=== PATIENT | male | born 1950 | race Caucasian/White ===

== ENCOUNTER 2019-09-27 07:21 | Emergency (ER) | payer OTHER ==
[~2019-09-27] VITALS: Ht 185.4 cm; Wt 59.0 kg
[2019-09-27 07:30] VITALS: BP_SYST 136
--- NOTE | 2019-09-27 07:30 | NUR ---
Patient to ER bed 08 to gown for evaluation. Side rails up.
--- NOTE | 2019-09-27 07:31 | NUR ---
Pt O2 86%, per pt he uses O2 at home, pt placed on NC 2L , 02 increased to 91%.
--- NOTE | 2019-09-27 07:33 | NUR ---
Dr Lerma at bedside examining patient
--- NOTE | 2019-09-27 07:35 | NUR ---
Patient came in to the ER with complaint of sore throat. Per Patient he uses O2 at home and is not complaining of sob. Patient spO2 of 94% on monitor. Patient not presenting any signs of respiratory distress.
--- NOTE | 2019-09-27 07:40 | NUR ---
Patient given written and verbal discharge instructions and verbalizes understanding. ER MD discussed with patient the results and treatment provided. Patient in stable condition. ID arm band removed. Rx of Z-pack given. Patient educated on pain management and to follow up with PMD. Pain Scale 0/10. Opportunity for questions provided and answered. Medication side effect fact sheet provided.
[2019-09-27 07:54] VITALS: BP_SYST 136
== END 2019-09-27 07:54 | disposition home or self-care (01) ==
LOC: SED 07:21
DX: J02.9 Acute pharyngitis, unspecified (principal); Z88.1 Allergy status to other antibiotic agents; Z88.8 Allergy status to other drugs, medicaments and biological substances
CPT/HCPCS: 99283

== ENCOUNTER 2019-09-30 08:34 | Inpatient (IN) | payer OTHER ==
[~2019-09-30] VITALS: Ht 182.9 cm; Wt 59.0 kg
[2019-09-30] VITALS (14 sets, daily range): BP systolic 87–141
[2019-09-30] MEDS ORDERED: KETOROLAC TROMETHAMINE 60 MG/2 ML VIAL IM ONE (09:00)
[2019-09-30] MEDS ORDERED: ONDANSETRON 4 MG ODT TAB PO ONE (09:00)
[2019-09-30 09:54] LABS: BASOPHILS % (AUTO) 0.2 % (0.0-2.0); EOSINOPHILS % (AUTO) 0.1 % (0.0-4.0); HEMATOCRIT 40.6 % (36-54); HEMOGLOBIN 13.3 g/dL (14.0-18.0); LYMPHOCYTES # (AUTO) 0.3 K/uL (1.0-5.5); LYMPHOCYTES % (AUTO) 5.8 % (20.5-51.5); MEAN CORPUSCULAR HEMOGLOBIN 30 pg (27-31); MEAN CORPUSCULAR HGB CONC 33 % (32-36); MEAN CORPUSCULAR VOLUME 92 fL (79.0-98.0); MONOCYTES # (AUTO) 0.2 K/uL (0.0-1.0); MONOCYTES % (AUTO) 4.1 % (1.7-9.3); NEUTROPHILS % (AUTO) 89.8 % (40.0-70.0); PLATELET COUNT (AUTO) 125 K/uL (130-430); RED BLOOD CELL COUNT(AUTO) 4.42 MIL/uL (4.2-6.2); RED CELL DISTRIBUTION WIDTH 14.6 % (9.0-15.0); WHITE BLOOD COUNT (AUTO) 4.4 K/uL (4.8-10.8)
[2019-09-30 10:06] LABS: INR 1.2 (0.80-1.20); PROTHROMBIN TIME 11.6 SECS (9.5-12.5)
[2019-09-30 10:16] LABS: CALCIUM 8.7 mg/dL (8.4-11.0); CREATININE 0.68 mg/dL (0.55-1.30)
[2019-09-30 10:20] LABS: TOTAL BILIRUBIN 0.7 mg/dL (0.0-1.0)
[2019-09-30] MEDS ORDERED: NACL 0.9% 1,000 ML IV ONE (11:15)
[2019-09-30] MEDS ORDERED: IPRATROPIUM/ALBUTEROL SULFATE 3 ML AMPUL.NEB (DUONEB) INH ONE (15:45)
[2019-09-30] MEDS ORDERED: FAMOTIDINE 20 MG TABLET PO ONE (16:00)
[2019-09-30] MEDS ORDERED: ACETAMINOPHEN 325 MG TABLET PO PRN (16:00)
[2019-09-30] MEDS ORDERED: DILTIAZEM HCL 25 MG/5 ML VIAL IVP ONE ×2 (16:15→16:45)
[2019-09-30] MEDS: NACL 0.9% 1,000 ML IV SCH (16:23)
[2019-09-30] MEDS ORDERED: AMIODARONE HCL 900 MG in D5W 482 ML IV SCH (18:00)
[2019-09-30] MEDS ORDERED: ACETAMINOPHEN 650 MG SUPP.RECT RC PRN (18:00)
[2019-09-30] MEDS ORDERED: NOREPINEPHRINE 4 MG/4 ML VIAL IV ONE (19:01)
[2019-09-30] MEDS ORDERED: IPRATROPIUM BROM 0.5 MG/2.5 ML VIAL.NEB (ATROVENT) INH PRN (20:30)
[2019-09-30] MEDS ORDERED: LevALBUTEROL HCL 1.25 MG/0.5 ML *CONC.* VIAL.NEB (XOPENEX CONC.) INH PRN (20:30)
[2019-09-30] MEDS: cefTRIAXone 1 GM in D5W 50 ML IV SCH (20:49)
[2019-09-30] MEDS: FAMOTIDINE PF 20 MG/2 ML VIAL IVP SCH (20:49)
[2019-09-30] MEDS: ENOXAPARIN SODIUM 40 MG/0.4 ML SYRINGE SUBCUT SCH (20:52)
[2019-09-30] MEDS: HYDROCORTISONE SOD SUCC 100 MG/2 ML VIAL IVP SCH (21:13)
[2019-09-30] MEDS: NOREPINEPHRINE BITARTRATE 4 MG in D5W 246 ML IV PRN (21:26)
[2019-09-30] MEDS ORDERED: IPRATROPIUM/ALBUTEROL SULFATE 3 ML AMPUL.NEB (DUONEB) INH SCH (22:00)
[2019-09-30] MEDS ORDERED: AMIODARONE HCL 900 MG/18 ML VIAL IV ONE (22:59)
[2019-10-01] VITALS (24 sets, daily range): BP systolic 90–132
[2019-10-01] MEDS: IPRATROPIUM BROM 0.5 MG/2.5 ML VIAL.NEB (ATROVENT) INH SCH ×4 (00:26→20:21)
[2019-10-01] MEDS: LevALBUTEROL HCL 1.25 MG/0.5 ML *CONC.* VIAL.NEB (XOPENEX CONC.) INH SCH ×4 (00:26→20:20)
[2019-10-01] MEDS: NACL 0.9% 1,000 ML IV SCH ×3 (04:35→23:07)
[2019-10-01] MEDS: NOREPINEPHRINE BITARTRATE 4 MG in D5W 246 ML IV PRN ×4 (04:36→20:01)
[2019-10-01] MEDS: HYDROCORTISONE SOD SUCC 100 MG/2 ML VIAL IVP SCH ×3 (05:11→21:25)
[2019-10-01] MEDS: ENOXAPARIN SODIUM 40 MG/0.4 ML SYRINGE SUBCUT SCH ×2 (05:13→18:00)
[2019-10-01 06:29] LABS: BASOPHILS % (AUTO) 0.1 % (0.0-2.0); HEMATOCRIT 45.2 % (36-54); HEMOGLOBIN 14.3 g/dL (14.0-18.0); LYMPHOCYTES # (AUTO) 0.3 K/uL (1.0-5.5); LYMPHOCYTES % (AUTO) 1.5 % (20.5-51.5); MEAN CORPUSCULAR HEMOGLOBIN 30 pg (27-31); MEAN CORPUSCULAR HGB CONC 32 % (32-36); MEAN CORPUSCULAR VOLUME 95 fL (79.0-98.0); MONOCYTES # (AUTO) 1.8 K/uL (0.0-1.0); MONOCYTES % (AUTO) 8.6 % (1.7-9.3); NEUTROPHILS # (AUTO) 18.5 K/uL (1.8-7.7); NEUTROPHILS % (AUTO) 89.8 % (40.0-70.0); PLATELET COUNT (AUTO) 154 K/uL (130-430); RED BLOOD CELL COUNT(AUTO) 4.77 MIL/uL (4.2-6.2); RED CELL DISTRIBUTION WIDTH 14.6 % (9.0-15.0); WHITE BLOOD COUNT (AUTO) 20.5 K/uL (4.8-10.8)
[2019-10-01] MEDS: ONDANSETRON HCL 4 MG/2 ML VIAL IVP PRN (07:23)
[2019-10-01 08:52] LABS: ALBUMIN 2.8 g/dL (3.4-4.8); CALCIUM 8.5 mg/dL (8.4-11.0); CREATININE 1.04 mg/dL (0.55-1.30); POTASSIUM 5.5 mmol/L (3.5-5.1); TOTAL BILIRUBIN 0.6 mg/dL (0.0-1.0)
[2019-10-01] MEDS ORDERED: ASPIRIN 81 MG TABLET(ECOTRIN) PO SCH (09:00)
[2019-10-01] MEDS: ASPIRIN 81 MG TABLET(ECOTRIN) PO SCH (09:00)
[2019-10-01] MEDS ORDERED: FAMOTIDINE 20 MG TABLET PO SCH (09:00)
[2019-10-01 11:10] LABS: BILIRUBIN,URINE NEGATIVE (NEGATIVE); BLOOD, URINE 2+ (NEGATIVE); CLARITY/URINE CLOUDY (CLEAR); COLOR,URINE YELLOW (YELLOW); GLUCOSE,URINE NEGATIVE (NEGATIVE); KETONES,URINE NEGATIVE (NEGATIVE); LEUKOCYTE ESTERASE ,URINE NEGATIVE (NEGATIVE); NITRITE, URINE NEGATIVE (NEGATIVE); PH,URINE 5.5 (5.0-8.0); PROTEIN URINE 1+ (NEGATIVE); UROBILINOGEN,URINE 0.2 (0.2-1.0)
[2019-10-01 11:15] LABS: BACTERIA,URINE FEW /HPF (None Seen); RBC,URINE 0-3 /HPF (0-3)
[2019-10-01 11:16] LABS: URINE AMORPHOUS URATE 3+ /HPF (None Seen)
[2019-10-01 12:16] LABS: THYROID STIMULATING HORMONE 2.05 uIu/mL (0.36-3.74)
[2019-10-01] MEDS: cefTRIAXone 1 GM in D5W 50 ML IV SCH (15:13)
[2019-10-01] MEDS ORDERED: metroNIDAZOLE 500 mg/NS 100 ML IV ONE (15:15)
[2019-10-01] MEDS: FAMOTIDINE PF 20 MG/2 ML VIAL IVP SCH (17:59)
[2019-10-01] MEDS ORDERED: SODIUM POLYSTYRENE SULFONATE 15 GM/60 ML UDBTL RC ONE (18:00)
[2019-10-01] MEDS: AMIODARONE HCL 200 MG TABLET PO SCH (21:24)
[2019-10-01] MEDS: metroNIDAZOLE 500 mg/NS 100 ML IV SCH (21:25)
[2019-10-02] VITALS (24 sets, daily range): BP systolic 94–138
[2019-10-02] MEDS: LevALBUTEROL HCL 1.25 MG/0.5 ML *CONC.* VIAL.NEB (XOPENEX CONC.) INH SCH ×4 (00:04→20:37)
[2019-10-02] MEDS: IPRATROPIUM BROM 0.5 MG/2.5 ML VIAL.NEB (ATROVENT) INH SCH ×4 (00:04→20:37)
[2019-10-02] MEDS: ONDANSETRON HCL 4 MG/2 ML VIAL IVP PRN ×2 (04:42→11:46)
[2019-10-02] MEDS: ENOXAPARIN SODIUM 40 MG/0.4 ML SYRINGE SUBCUT SCH ×2 (05:09→17:25)
[2019-10-02] MEDS: HYDROCORTISONE SOD SUCC 100 MG/2 ML VIAL IVP SCH ×3 (05:10→21:02)
[2019-10-02] MEDS: metroNIDAZOLE 500 mg/NS 100 ML IV SCH ×3 (05:10→21:01)
[2019-10-02 07:02] LABS: BASOPHILS % (AUTO) 0.1 % (0.0-2.0); HEMATOCRIT 39.7 % (36-54); HEMOGLOBIN 12.8 g/dL (14.0-18.0); LYMPHOCYTES # (AUTO) 0.2 K/uL (1.0-5.5); LYMPHOCYTES % (AUTO) 1.9 % (20.5-51.5); MEAN CORPUSCULAR HEMOGLOBIN 30 pg (27-31); MEAN CORPUSCULAR HGB CONC 32 % (32-36); MEAN CORPUSCULAR VOLUME 93 fL (79.0-98.0); MONOCYTES # (AUTO) 0.9 K/uL (0.0-1.0); MONOCYTES % (AUTO) 8.5 % (1.7-9.3); NEUTROPHILS # (AUTO) 9.6 K/uL (1.8-7.7); NEUTROPHILS % (AUTO) 89.5 % (40.0-70.0); PLATELET COUNT (AUTO) 97 K/uL (130-430); RED BLOOD CELL COUNT(AUTO) 4.26 MIL/uL (4.2-6.2); RED CELL DISTRIBUTION WIDTH 14.3 % (9.0-15.0); WHITE BLOOD COUNT (AUTO) 10.7 K/uL (4.8-10.8)
[2019-10-02 07:17] LABS: ALANINE AMINOTRANSFERASE 41 U/L (12-78); ALBUMIN 2.7 g/dL (3.4-4.8); ASPARTATE AMINOTRANSFERASE 25 U/L (10-37); CALCIUM 8.4 mg/dL (8.4-11.0); CHLORIDE 97 mmol/L (98-107); CREATININE 0.73 mg/dL (0.55-1.30); GLUCOSE 113 mg/dL (70-99); POTASSIUM 4.7 mmol/L (3.5-5.1); SODIUM SERUM 132 mmol/L (136-145); TOTAL BILIRUBIN 0.3 mg/dL (0.0-1.0); UREA NITROGEN, BLOOD 36 mg/dL (8-21)
[2019-10-02 07:34] LABS: GFR AFRICAN AMERICAN 137 mL/min (>90)
[2019-10-02 07:35] LABS: ANION GAP < 3 (5-15)
[2019-10-02] MEDS: AMIODARONE HCL 200 MG TABLET PO SCH ×2 (09:00→21:02)
[2019-10-02] MEDS: ASPIRIN 81 MG TABLET(ECOTRIN) PO SCH (09:00)
[2019-10-02] MEDS: NACL 0.9% 1,000 ML IV SCH ×2 (09:26→19:07)
[2019-10-02] MEDS: cefTRIAXone 1 GM in D5W 50 ML IV SCH (16:43)
[2019-10-02] MEDS: FAMOTIDINE PF 20 MG/2 ML VIAL IVP SCH (17:25)
[2019-10-03] VITALS (19 sets, daily range): BP systolic 108–121
[2019-10-03] MEDS: LevALBUTEROL HCL 1.25 MG/0.5 ML *CONC.* VIAL.NEB (XOPENEX CONC.) INH SCH ×4 (01:33→19:41)
[2019-10-03] MEDS: IPRATROPIUM BROM 0.5 MG/2.5 ML VIAL.NEB (ATROVENT) INH SCH ×4 (01:33→19:41)
[2019-10-03] MEDS: HYDROCORTISONE SOD SUCC 100 MG/2 ML VIAL IVP SCH (05:10)
[2019-10-03] MEDS: NACL 0.9% 1,000 ML IV SCH ×2 (05:10→21:46)
[2019-10-03] MEDS: metroNIDAZOLE 500 mg/NS 100 ML IV SCH ×3 (05:11→21:48)
[2019-10-03] MEDS: ENOXAPARIN SODIUM 40 MG/0.4 ML SYRINGE SUBCUT SCH ×2 (05:11→18:26)
[2019-10-03 06:36] LABS: CALCIUM 8.2 mg/dL (8.4-11.0); CHLORIDE 99 mmol/L (98-107); CREATININE 0.57 mg/dL (0.55-1.30); GLUCOSE 92 mg/dL (70-99); POTASSIUM 4.3 mmol/L (3.5-5.1); SODIUM SERUM 133 mmol/L (136-145); UREA NITROGEN, BLOOD 28 mg/dL (8-21)
[2019-10-03 06:46] LABS: ANION GAP < 3 (5-15); GFR AFRICAN AMERICAN 182 mL/min (>90)
[2019-10-03 06:59] LABS: HEMATOCRIT 34.1 % (36-54); HEMOGLOBIN 11.2 g/dL (14.0-18.0); LYMPHOCYTES # (AUTO) 0.2 K/uL (1.0-5.5); LYMPHOCYTES % (AUTO) 2.8 % (20.5-51.5); MEAN CORPUSCULAR HEMOGLOBIN 30 pg (27-31); MEAN CORPUSCULAR HGB CONC 33 % (32-36); MEAN CORPUSCULAR VOLUME 93 fL (79.0-98.0); MONOCYTES # (AUTO) 0.3 K/uL (0.0-1.0); NEUTROPHILS % (AUTO) 91.2 % (40.0-70.0); PLATELET COUNT (AUTO) 84 K/uL (130-430); RED BLOOD CELL COUNT(AUTO) 3.69 MIL/uL (4.2-6.2); RED CELL DISTRIBUTION WIDTH 14.6 % (9.0-15.0); WHITE BLOOD COUNT (AUTO) 5.5 K/uL (4.8-10.8)
[2019-10-03] MEDS: ASPIRIN 81 MG TABLET(ECOTRIN) PO SCH (09:53)
[2019-10-03] MEDS: AMIODARONE HCL 200 MG TABLET PO SCH ×2 (09:54→20:23)
[2019-10-03] MEDS ORDERED: BISACODYL 10 MG/SUPPOSITORY RC ONE (10:45)
[2019-10-03] MEDS ORDERED: FUROSEMIDE 20 MG/2 ML VIAL IVP ONE (10:45)
[2019-10-03] MEDS ORDERED: DOCUSATE SODIUM 250 MG CAPSULE PO ONE (11:00)
[2019-10-03] MEDS: cefTRIAXone 1 GM in D5W 50 ML IV SCH (16:32)
[2019-10-03] MEDS: FAMOTIDINE PF 20 MG/2 ML VIAL IVP SCH (18:25)
[2019-10-03] MEDS: PREDNISONE 20 MG TABLET PO SCH (20:23)
[2019-10-03] MEDS: DOCUSATE SODIUM 250 MG CAPSULE PO SCH (20:23)
[2019-10-04] VITALS: BP_SYST 138
[2019-10-04] MEDS: IPRATROPIUM BROM 0.5 MG/2.5 ML VIAL.NEB (ATROVENT) INH SCH ×4 (01:07→19:38)
[2019-10-04] MEDS: LevALBUTEROL HCL 1.25 MG/0.5 ML *CONC.* VIAL.NEB (XOPENEX CONC.) INH SCH ×4 (01:07→19:38)
[2019-10-04] MEDS: metroNIDAZOLE 500 mg/NS 100 ML IV SCH ×3 (05:01→21:09)
[2019-10-04] MEDS: ENOXAPARIN SODIUM 40 MG/0.4 ML SYRINGE SUBCUT SCH ×2 (05:02→18:29)
[2019-10-04 07:45] VITALS: BP_SYST 128
[2019-10-04 08:37] LABS: CALCIUM 8.2 mg/dL (8.4-11.0); CHLORIDE 97 mmol/L (98-107); GLUCOSE 98 mg/dL (70-99); POTASSIUM 4.4 mmol/L (3.5-5.1); SODIUM SERUM 134 mmol/L (136-145); UREA NITROGEN, BLOOD 25 mg/dL (8-21)
[2019-10-04 08:42] LABS: ANION GAP < 3 (5-15); GFR AFRICAN AMERICAN 171 mL/min (>90)
[2019-10-04] MEDS: ASPIRIN 81 MG TABLET(ECOTRIN) PO SCH (09:35)
[2019-10-04] MEDS: DOCUSATE SODIUM 250 MG CAPSULE PO SCH ×2 (09:35→20:29)
[2019-10-04] MEDS: AMIODARONE HCL 200 MG TABLET PO SCH ×2 (09:36→20:23)
[2019-10-04] MEDS: PREDNISONE 20 MG TABLET PO SCH ×2 (09:36→20:24)
[2019-10-04] MEDS ORDERED: SODIUM PHOSPHATE,MONO-DIBASIC 133 ML ENEMA RC ONE (10:45)
[2019-10-04 12:06] VITALS: BP_SYST 126
[2019-10-04] MEDS ORDERED: BARIUM SULFATE 135 ML SUSP.RECON (E-Z-HD) PO ONE (13:25)
[2019-10-04 16:30] VITALS: BP_SYST 127
[2019-10-04] MEDS ORDERED: BISACODYL 10 MG/SUPPOSITORY RC PRN (17:00)
[2019-10-04] MEDS: cefTRIAXone 1 GM in D5W 50 ML IV SCH (17:02)
[2019-10-04] MEDS: FAMOTIDINE PF 20 MG/2 ML VIAL IVP SCH (18:29)
[2019-10-04 19:10] VITALS: BP_SYST 127
[2019-10-04 19:20] VITALS: BP_SYST 136
[2019-10-04] MEDS: PSYLLIUM HUSK 1 PKT PACKET PO SCH (20:26)
[2019-10-04] MEDS: NACL 0.9% 1,000 ML IV SCH (21:10)
[2019-10-05] MEDS: IPRATROPIUM BROM 0.5 MG/2.5 ML VIAL.NEB (ATROVENT) INH SCH ×4 (01:00→19:49)
[2019-10-05] MEDS: LevALBUTEROL HCL 1.25 MG/0.5 ML *CONC.* VIAL.NEB (XOPENEX CONC.) INH SCH ×4 (01:00→19:49)
[2019-10-05 01:36] VITALS: BP_SYST 142
[2019-10-05] MEDS: metroNIDAZOLE 500 mg/NS 100 ML IV SCH ×3 (05:46→22:21)
[2019-10-05] MEDS: ENOXAPARIN SODIUM 40 MG/0.4 ML SYRINGE SUBCUT SCH (05:48)
[2019-10-05 08:00] VITALS: BP_SYST 126
[2019-10-05] MEDS: DOCUSATE SODIUM 250 MG CAPSULE PO SCH ×2 (08:11→22:20)
[2019-10-05] MEDS: ASPIRIN 81 MG TABLET(ECOTRIN) PO SCH (08:12)
[2019-10-05] MEDS: AMIODARONE HCL 200 MG TABLET PO SCH ×2 (08:12→22:20)
[2019-10-05] MEDS: PREDNISONE 20 MG TABLET PO SCH ×2 (08:12→22:20)
[2019-10-05] MEDS: PSYLLIUM HUSK 1 PKT PACKET PO SCH ×2 (08:12→22:20)
[2019-10-05 12:38] VITALS: BP_SYST 135
[2019-10-05] MEDS: cefTRIAXone 1 GM in D5W 50 ML IV SCH (16:36)
[2019-10-05 17:01] VITALS: BP_SYST 136
[2019-10-05] MEDS: FAMOTIDINE PF 20 MG/2 ML VIAL IVP SCH (17:20)
[2019-10-05 20:00] VITALS: BP_SYST 125
[2019-10-06] MEDS: LevALBUTEROL HCL 1.25 MG/0.5 ML *CONC.* VIAL.NEB (XOPENEX CONC.) INH SCH ×3 (00:26→13:27)
[2019-10-06] MEDS: IPRATROPIUM BROM 0.5 MG/2.5 ML VIAL.NEB (ATROVENT) INH SCH ×3 (00:26→13:28)
[2019-10-06 00:29] VITALS: BP_SYST 148
[2019-10-06] MEDS: metroNIDAZOLE 500 mg/NS 100 ML IV SCH ×2 (05:46→14:12)
[2019-10-06 08:00] VITALS: BP_SYST 134
[2019-10-06] MEDS: PREDNISONE 20 MG TABLET PO SCH (08:11)
[2019-10-06] MEDS: ASPIRIN 81 MG TABLET(ECOTRIN) PO SCH (08:11)
[2019-10-06] MEDS: AMIODARONE HCL 200 MG TABLET PO SCH (08:12)
[2019-10-06] MEDS: DOCUSATE SODIUM 250 MG CAPSULE PO SCH (08:12)
[2019-10-06] MEDS: PSYLLIUM HUSK 1 PKT PACKET PO SCH (08:12)
[2019-10-06 09:03] VITALS: BP_SYST 148
[2019-10-06 09:49] LABS: CHLORIDE 93 mmol/L (98-107); POTASSIUM 4.2 mmol/L (3.5-5.1); SODIUM SERUM 132 mmol/L (136-145)
[2019-10-06 09:50] LABS: ANION GAP < 3 (5-15); GLUCOSE 97 mg/dL (70-99)
[2019-10-06 09:51] LABS: CALCIUM 7.8 mg/dL (8.4-11.0); CREATININE 0.49 mg/dL (0.55-1.30); GFR AFRICAN AMERICAN 216 mL/min (>90); UREA NITROGEN, BLOOD 21 mg/dL (8-21)
[2019-10-06] MEDS ORDERED: acetaZOLAMIDE 250 MG TABLET (DIAMOX) PO ONE (11:30)
[2019-10-06 12:00] VITALS: BP_SYST 138
[2019-10-06 13:16] VITALS: BP_SYST 134
[2019-10-06] MEDS ORDERED: PREDNISONE 10 MG TABLET PO SCH (21:00)
== END 2019-10-06 15:30 | disposition home or self-care (01) | DRG 871 ==
LOC: SED 08:34 → STU 12:05 → SIC 18:24 → STU 10-03 16:05
PROVIDERS: ADMIT Internal Medicine; ATTEND Internal Medicine
PROC: 5A09357 Assistance with Respiratory Ventilation, Less than 24 Consecutive Hours, Continuous Positive Airway Pressure (ICD-10-PCS; principal; 2019-09-30)
PROC: 5A09357 Assistance with Respiratory Ventilation, Less than 24 Consecutive Hours, Continuous Positive Airway Pressure (ICD-10-PCS; 2019-10-01)
PROC: 5A09357 Assistance with Respiratory Ventilation, Less than 24 Consecutive Hours, Continuous Positive Airway Pressure (ICD-10-PCS; 2019-10-02)
PROC: 5A09357 Assistance with Respiratory Ventilation, Less than 24 Consecutive Hours, Continuous Positive Airway Pressure (ICD-10-PCS; 2019-10-03)
PROC: 5A09357 Assistance with Respiratory Ventilation, Less than 24 Consecutive Hours, Continuous Positive Airway Pressure (ICD-10-PCS; 2019-10-04)
PROC: 5A09357 Assistance with Respiratory Ventilation, Less than 24 Consecutive Hours, Continuous Positive Airway Pressure (ICD-10-PCS; 2019-10-05)
DX: A41.9 Sepsis, unspecified organism (principal); J96.20 Acute and chronic respiratory failure, unspecified whether with hypoxia or hypercapnia; J96.21 Acute and chronic respiratory failure with hypoxia; R65.21 Severe sepsis with septic shock; J69.0 Pneumonitis due to inhalation of food and vomit; G93.41 Metabolic encephalopathy; C15.9 Malignant neoplasm of esophagus, unspecified; E87.1 Hypo-osmolality and hyponatremia; E87.2 Acidosis; J44.0 Chronic obstructive pulmonary disease with (acute) lower respiratory infection; J44.1 Chronic obstructive pulmonary disease with (acute) exacerbation; E44.0 Moderate protein-calorie malnutrition; Z68.1 Body mass index [BMI] 19.9 or less, adult; D69.6 Thrombocytopenia, unspecified; J84.10 Pulmonary fibrosis, unspecified; Z66 Do not resuscitate; Z51.5 Encounter for palliative care; I48.0 Paroxysmal atrial fibrillation; K59.00 Constipation, unspecified; Z90.2 Acquired absence of lung [part of]; Z92.21 Personal history of antineoplastic chemotherapy; Z92.3 Personal history of irradiation; Z99.81 Dependence on supplemental oxygen; Z88.8 Allergy status to other drugs, medicaments and biological substances; Z91.041 Radiographic dye allergy status
CPT/HCPCS: 36415; 36600; 70450-TC; 71045; 74230; 80048; 80053; 80061; 81000-TC; 82803-TC; 82962; 83605; 83735-TC; 83880; 84443-TC; 84484; 85025; 85610-TC; 85730-TC; 87040-TC; 87070-TC; 87081; 87086; 87205-TC; 92610-GN; 92611-GN; 93005; 93306; 94640; 94660; 94760; 96360; 96372; 97110-GP; 97116-GP; 99285; G0378; J0282; J0696; J1650; J1720; J1885; J1940; J2405; J3490; J7030; J7060; J7512; J7612; J7620; Q0162

== ENCOUNTER 2021-07-23 18:30 | Emergency (ER) | payer OTHER ==
[~2021-07-23] VITALS: Ht 185.4 cm; Wt 63.5 kg
[2021-07-23 18:35] VITALS: BP_SYST 124
[2021-07-23 18:52] VITALS: BP_SYST 124
== END 2021-07-23 18:52 | disposition home or self-care (01) ==
LOC: SED 18:30
DX: R09.81 Nasal congestion (principal); Z88.1 Allergy status to other antibiotic agents; Z91.041 Radiographic dye allergy status
CPT/HCPCS: 99283

== ENCOUNTER 2022-04-10 02:59 | Emergency (ER) | payer OTHER ==
[~2022-04-10] VITALS: Ht 175.3 cm; Wt 59.0 kg
[~2022-04-10 02:59] MED LIST: CARV3.1246 PO; FURO-150 PO; LINA290C PO
[2022-04-10 03:05] VITALS: BP_SYST 129
--- NOTE | 2022-04-10 03:54 | NUR ---
ER Dr.Dela Lubin examining patient in the [facility].
[2022-04-10 04:10] LABS: BASOPHILS % (AUTO) 0.2 % (0.0-2.0); EOSINOPHILS % (AUTO) 0.5 % (0.0-4.0); HEMOGLOBIN 11.6 g/dL (14.0-18.0); LYMPHOCYTES # (AUTO) 0.4 K/uL (1.0-5.5); LYMPHOCYTES % (AUTO) 9.8 % (20.5-51.5); MEAN CORPUSCULAR HEMOGLOBIN 32 pg (27-31); MEAN CORPUSCULAR HGB CONC 33 % (32-36); MEAN CORPUSCULAR VOLUME 95 fL (79.0-98.0); MONOCYTES # (AUTO) 0.2 K/uL (0.0-1.0); MONOCYTES % (AUTO) 5.3 % (1.7-9.3); NEUTROPHILS # (AUTO) 3.1 K/uL (1.8-7.7); NEUTROPHILS % (AUTO) 84.2 % (40.0-70.0); PLATELET COUNT (AUTO) 99 K/uL (130-430); RED BLOOD CELL COUNT(AUTO) 3.68 MIL/uL (4.2-6.2); RED CELL DISTRIBUTION WIDTH 12.8 % (9.0-15.0); WHITE BLOOD COUNT (AUTO) 3.7 K/uL (4.8-10.8)
[2022-04-10 04:18] LABS: ANION GAP -4 (5-15); CALCIUM 8.7 mg/dL (8.4-11.0); CHLORIDE 92 mmol/L (98-107); CREATININE 0.66 mg/dL (0.55-1.30); GLUCOSE 103 mg/dL (70-99); POTASSIUM 4.4 mmol/L (3.5-5.1); SODIUM SERUM 134 mmol/L (136-145); UREA NITROGEN, BLOOD 20 mg/dL (8-21)
--- NOTE | 2022-04-10 04:20 | NUR ---
Patient to ER bed 6 to gown for evaluation. Side rails up.
[2022-04-10 04:26] LABS: ALANINE AMINOTRANSFERASE 9 U/L (12-78); ALBUMIN 3.2 g/dL (3.4-4.8); ASPARTATE AMINOTRANSFERASE 12 U/L (10-37); TOTAL BILIRUBIN 0.6 mg/dL (0.0-1.0)
[2022-04-10] MEDS ORDERED: ONDANSETRON 4 MG ODT TAB PO ONE (05:45)
--- NOTE | 2022-04-10 06:10 | NUR ---
Medicated w/ Zofran 4mg odt as ordered by Dr Mustafa.
--- NOTE | 2022-04-10 06:46 | NUR ---
Report given to Pamela NELSON from [facility] [place].
--- NOTE | 2022-04-10 07:15 | NUR ---
REPORT GIVEN TO LESLIE ROMAN
--- NOTE | 2022-04-10 07:45 | NUR ---
Pt aaox4, skin intact, pt sitting up with O2 at 2 liters. No complaints at this time. Discussed transportation situation. Pt. will arrange a ride home for discharge.
--- NOTE | 2022-04-10 08:20 | NUR ---
Patient given written and verbal discharge instructions and verbalizes understanding. ER MD discussed with patient the results and treatment provided. Patient in stable condition. ID arm band removed. Opportunity for questions provided and answered. Medication side effect fact sheet provided.
[2022-04-10 08:38] VITALS: BP_SYST 129
== END 2022-04-10 08:20 | disposition home or self-care (01) ==
LOC: SED 02:59
DX: J44.9 Chronic obstructive pulmonary disease, unspecified (principal); R11.0 Nausea; R06.02 Shortness of breath; Z88.1 Allergy status to other antibiotic agents; Z91.041 Radiographic dye allergy status; Z79.899 Other long term (current) drug therapy
CPT/HCPCS: 99283; 80053; 85025; 84484; 36415; Q0162

== ENCOUNTER 2023-03-07 10:37 | Emergency (ER) | payer OTHER ==
[~2023-03-07] VITALS: Ht 185.4 cm; Wt 59.0 kg
[2023-03-07 11:09] VITALS: BP_SYST 125
--- NOTE | 2023-03-07 11:10 | NUR ---
DR JOVEL AT BEDSIDE EXAMINING PATIENT
--- NOTE | 2023-03-07 11:14 | NUR ---
Placed in room 8 . Placed on color television console monitor, blood pressure machine and pulse oximeter. To gown for exam. Side rails up. Report given to Taya.
--- NOTE | 2023-03-07 11:20 | NUR ---
PATIENT BIB [facility]. STATES HE AWOKE THIS AM WITH SOB & CHECKED HIS SPO2 TO FIND HE WAS AT 66% ON ROOM AIR. PATIENT ALERTED STAFF AT HIS [facility] & THEY CALLED 911. STAFF CONFIRMED THE PULSE OX READING & PLAXCED PATIENT ON O2 ON SCENE. PATIENT ARRIVED AT ED ON HIGH FLOW O2 VIA NONREBREATHER MASK, O2 SAT 99%. PATIENT AAOX4. STATES HE IS ALSO HAVING NAUSEA & ABDOMINAL PAIN. MED HX OF COPD, ESOPHAGEAL CANCER, CONSTIPATION WITH BOWEL OBSTRUCTION. SX HX: RIGHT LOWER LUNG EXCISION IN 2002, CHOECYSTECOMY. ALLERGY TO IODINE CONTRAST.
[2023-03-07 11:30] LABS: BASOPHILS % (AUTO) 0.1 % (0.0-2.0); EOSINOPHILS % (AUTO) 0.7 % (0.0-4.0); HEMATOCRIT 35.2 % (36-54); HEMOGLOBIN 11.3 g/dL (14.0-18.0); LYMPHOCYTES # (AUTO) 0.4 K/uL (1.0-5.5); LYMPHOCYTES % (AUTO) 6.3 % (20.5-51.5); MEAN CORPUSCULAR HEMOGLOBIN 31 pg (27-31); MEAN CORPUSCULAR HGB CONC 32 % (32-36); MEAN CORPUSCULAR VOLUME 95 fL (79.0-98.0); MONOCYTES # (AUTO) 0.4 K/uL (0.0-1.0); MONOCYTES % (AUTO) 6.1 % (1.7-9.3); NEUTROPHILS # (AUTO) 5.8 K/uL (1.8-7.7); NEUTROPHILS % (AUTO) 86.8 % (40.0-70.0); PLATELET COUNT (AUTO) 75 K/uL (130-430); RED CELL DISTRIBUTION WIDTH 13.9 % (9.0-15.0); WHITE BLOOD COUNT (AUTO) 6.7 K/uL (4.8-10.8)
[2023-03-07 12:00] LABS: CALCIUM 8.7 mg/dL (8.4-11.0); CHLORIDE 95 mmol/L (98-107); CREATININE 0.79 mg/dL (0.55-1.30); GLUCOSE 121 mg/dL (70-99); UREA NITROGEN, BLOOD 32 mg/dL (8-21)
--- NOTE | 2023-03-07 12:00 | NUR ---
PATIENT TITRATED TO 4LPM VIA NC, O2 SAT AT 97%.
[2023-03-07 12:05] LABS: ALANINE AMINOTRANSFERASE 11 U/L (12-78); ALBUMIN 3.1 g/dL (3.4-4.8); AMYLASE 69 U/L (0-100); ASPARTATE AMINOTRANSFERASE 13 U/L (10-37); C-REACTIVE PROTEIN QUANT < 0.2 mg/dL (0-0.5); LACTATE DEHYDROGENASE 107 U/L (85-227); LIPASE 30 U/L (73-393); TOTAL BILIRUBIN 0.4 mg/dL (0.0-1.0)
[2023-03-07 12:07] LABS: ANION GAP < 3 (5-15)
[2023-03-07 12:11] LABS: ACETONE, SERUM NEGATIVE (NEGATIVE)
--- NOTE | 2023-03-07 12:12 | NUR ---
Tigre ochoabetty in [facility] - 03/07/23 at [address] JOVEL AT BEDSIDE EXAMINING PATIENT
--- NOTE | 2023-03-07 15:08 | NUR ---
XRAY DONE AT BEDSIDE
[2023-03-07 15:45] VITALS: BP_SYST 127
--- NOTE | 2023-03-07 15:45 | NUR ---
Patient given written and verbal discharge instructions and verbalizes understanding. ER MD JOVEL discussed with patient the results and treatment provided. Patient in stable condition. ID arm band removed. IV catheter removed intact and dressing applied, no active bleeding. Rx of given. Patient educated on symptom management and to follow up with PMD. Pain Scale 0/10. Opportunity for questions provided and answered.
== END 2023-03-07 15:45 | disposition home or self-care (01) ==
LOC: SED 10:37
DX: K80.50 Calculus of bile duct without cholangitis or cholecystitis without obstruction (principal); R11.0 Nausea; K59.00 Constipation, unspecified; J44.9 Chronic obstructive pulmonary disease, unspecified; Z88.1 Allergy status to other antibiotic agents; Z91.041 Radiographic dye allergy status; Z79.899 Other long term (current) drug therapy
CPT/HCPCS: 36415; 36600; 71045; 76376; 80053; 82009; 82150; 82803; 83605; 83615; 83690; 84484; 85025; 86140; 99284